=== PATIENT | male | born 1955 ===

== ENCOUNTER 2020-04-11 18:04 | Outpatient (CLI) | payer OTHER | END 2020-04-11 19:00 | disposition home or self-care (01) | LOC: LAB 18:04 | PROVIDERS: ATTEND Urology | DX: R97.20 Elevated prostate specific antigen [PSA] (principal) ==

== ENCOUNTER 2020-04-26 07:09 | Outpatient (CLI) | payer OTHER | END 2020-04-26 07:21 | disposition home or self-care (01) | LOC: SONOGRAMA 07:09 | PROVIDERS: ATTEND Urology | DX: C61 Malignant neoplasm of prostate (principal); D29.1 Benign neoplasm of prostate; R97.20 Elevated prostate specific antigen [PSA] ==